=== PATIENT | female | born 1985 | race Caucasian/White ===

== ENCOUNTER → 2018-01-14 14:45 | Outpatient (CLI) | payer BC, SELFPAY ==
[2018-01-20 16:03] LABS: HPV Reflexed? NOT INDICATED
== END ==
PROVIDERS: Visit Provider Obstetrics & Gynecology
DX: Z12.4 Encounter for screening for malignant neoplasm of cervix (principal)
CPT/HCPCS: 88175; G0145

== ENCOUNTER → 2019-10-26 07:40 | Outpatient (CLI) | payer BC, SELFPAY ==
[2019-10-26 09:12] LABS: Follicle Stimulating Hormone 5.8 mIU/mL; Free T3 2.5 pg/mL (2.18-3.98); T4 Free Direct 1.13 ng/dL (0.76-1.46); Thyroid Stim Hormone (TSH) 1.17 uIU/mL (0.358-3.74)
[2019-10-26 14:55] LABS: Vitamin D,25 Hydroxy 29.2 ng/mL (29.95-100.01)
[2019-10-27 06:07] LABS: DHEA Sulfate 83.4 ug/dL (57.3-279.2)
[2019-10-27 12:09] LABS: Sex Hormone-binding Globulin 65.2 nmol/L (24.6-122.0)
== END ==
PROVIDERS: Family Provider Family Medicine; PCP Family Medicine; Referring Provider Obstetrics & Gynecology; Visit Provider Obstetrics & Gynecology
DX: N92.6 Irregular menstruation, unspecified (principal); E28.8 Other ovarian dysfunction
CPT/HCPCS: 36415; 82306; 82627; 82670; 83001; 84270; 84403; 84439; 84443; 84481; 82626

== ENCOUNTER → 2019-11-22 09:26 | Outpatient (CLI) | payer BC, SELFPAY ==
--- NOTE | 2019-11-22 09:33 | BI_ITS ---
MAMMOGRAPHY - BILATERAL DIAGNOSTIC REASON FOR EXAM: Female, 34 years old. BILAT DIAGNOSTIC- FM HX MAT GMA 74(LATE STAGE DIAGNOSIS - WITH IN 6 MO) - PT HAD RT BREAST 1 CM UIQ MEDIAL ASPECT LUMP 6 WKS AGO PRE MENSES THAT WENT AWAY 10 DAYS LATER-INCREASED TENDERNESS ON RT PRE -MENSTRUALLY FOR LAST 3 MTHS, PT ALSO CUT WAY BACK ON [place] IN LAST MTH PERTINENT HISTORY: As above. TECHNIQUE: Digital examination. Mediolateral oblique (MLO) and craniocaudad (CC) views of both breasts were obtained. CAD: COMPARISON: None. Baseline examination. FINDINGS: Breast Composition: The breasts are heterogeneously dense, which may obscure small masses. There are no dominant masses or suspicious calcifications. No other significant abnormalities are identified. BI/DIAG MAMM W/CAD, BILAT IMPRESSION: Negative diagnostic mammogram. Yearly followup recommended. ASSESSMENT CATEGORY: BIRADS Category 1: Negative. A letter regarding these results will be sent to the patient by the facility within 30 days. FOLLOW UP RECOMMENDATION: Ultrasound Recommended. (I) Approximately 10% of breast cancers are not detected by mammography. A normal mammogram should not delay biopsy of a clinically suspicious abnormality. Electronically Signed: Ryan Grider MD at 11:36 EST , Service support ,
--- NOTE | 2019-11-22 09:34 | US_ITS ---
STUDY: ULTRASOUND BREAST - RIGHT REASON FOR EXAM: Female, 34 years old. Previous right breast lump. TECHNIQUE: Axial and longitudinal images of the RIGHT breast were performed with a high resolution ultrasound transducer. # OF IMAGES: 70 COMPARISON: None. FINDINGS: RIGHT Breast: There is no sonographically evident focal/discrete mass or cyst at the region of patient demonstrated palpable abnormality. At the 9:00 position, 1 cm from nipple there is a 0.5 x 0.5 x 0.3 cm, ovoid anechoic focus. This finding wider than it is tall. There is a typical benign appearing right axillary lymph node measuring 1.1 cm in maximum dimension. US/Breast Limited Unilateral IMPRESSION: No sonographically evident focal/discrete mass or cyst at the region of patient demonstrated palpable abnormality. Right breast 9:00 position subcentimeter simple cyst. Typically benign appearing right axillary lymph node. ASSESSMENT CATEGORY: BIRADS Category 2: Benign. A letter regarding these results will be sent to the patient by the facility within 30 days. Electronically Signed: Ryan Grider MD at 11:40 EST , Service support ,
== END ==
PROVIDERS: Family Provider Family Medicine; PCP Family Medicine; Referring Provider Obstetrics & Gynecology; Visit Provider Obstetrics & Gynecology
DX: N63.11 Unspecified lump in the right breast, upper outer quadrant (principal)
CPT/HCPCS: 76642; 77062; 77066; G0279

== ENCOUNTER → 2020-11-07 17:49 | Outpatient (CLI) | payer BC, SELFPAY | PROVIDERS: PCP Family Medicine; Visit Provider Nurse Practitioner Family | DX: R09.81 Nasal congestion (principal) | CPT/HCPCS: 87635; U0003 ==

== ENCOUNTER → 2022-11-22 | Outpatient (CLI) | payer OTHER, SELFPAY ==
[2022-11-22 11:55] LABS: Free T3 2.8 pg/mL (2.18-3.98); T4 Free Direct 0.99 ng/dL (0.76-1.46); Thyroid Stim Hormone (TSH) 1.24 uIU/mL (0.358-3.74)
== END | disposition home or self-care (01) ==
LOC: LAB 10:38
PROVIDERS: PCP Family Medicine; Visit Provider Student in an Organized Health Care Education/Training Program
DX: F90.0 Attention-deficit hyperactivity disorder, predominantly inattentive type (principal); F32.81 Premenstrual dysphoric disorder
CPT/HCPCS: 36415; 84439; 84443; 84481

== ENCOUNTER → 2022-11-29 | Outpatient (CLI) | payer OTHER, SELFPAY ==
[2022-11-29 12:13] LABS: Absolute Lymphocyte Count 0.96 X10^3/uL (0.83-4.51); Absolute Neutrophil Count 1.8 X10^3/uL (2.0-7.7); Basophil# 0.03 X10^3/uL; Eosinophil# 0.04 X10^3/uL; Eosinophils% 1.3 % (0-5); Hematocrit 39.7 % (37-47); Hemoglobin 13.4 g/dL (12.0-15.0); Lymphocyte # 0.96 X10^3/ul (0.83-4.51); Lymphocyte % 30.8 % (19-41); Mean Corp Hgb Conc 33.8 g/dL (32-36); Mean Platelet Vol. 10.4 fl (6.2-12.0); Monocyte# 0.25 X10^3/uL; NRBC Flagged by Analyzer 0 % (0-5); Neutrophil # 1.84 X10^3/uL (2.7-7.7); Neutrophil % 58.9 % (47-70); Platelet Count 263 K/mm3 (150-450); RBC Distribution Width CV 12.1 % (11.6-14.6); RBC Distribution Width SD 39.3 fl (35.1-43.9); Red Blood Count 4.46 M/mm3 (4.2-5.4); White Blood Count 3.1 K/mm3 (4.4-11.0)
[2022-11-29 12:39] LABS: ALB/GLOB Ratio 1.1 RATIO (0.9-2.4); AST(SGOT) 19 U/L (15-37); Alanine Aminotransfer ALT/SGPT 21 U/L (13-56); Albumin, Serum 3.9 g/dL (3.2-5.0); Alkaline Phosphatase 48 U/L (45-117); Anion Gap 8 (5-15); BUN 14 mg/dL (7-18); BUN/Creat Ratio 15.5 RATIO (10-20); Calcium,Total 9.1 mg/dL (8.5-10.1); Chloride 104 mmol/L (98-107); Cholesterol 141 mg/dL (200); EST Glomerular Filtration Rate 74 mL/min (>60); Est Glom Filt Rate - Afr Amer 89 mL/min (>60); Globulin 3.4 g/dL (2.2-4.2); Glucose 87 mg/dL (74-106); High Density Lipoprotein 72 mg/dL; Potassium 4.2 mmol/L (3.5-5.1); Protein, Total 7.3 g/dL (6.4-8.2); Sodium Level 139 mmol/L (136-145); Triglycerides 101 mg/dL; Very Low Density Lipoprotein 20 mg/dL (5-40)
== END | disposition home or self-care (01) ==
LOC: MFPLAB 10:29
PROVIDERS: PCP Family Medicine; Visit Provider Nurse Practitioner Family
DX: R42 Dizziness and giddiness (principal); Z13.1 Encounter for screening for diabetes mellitus; Z13.220 Encounter for screening for lipoid disorders
CPT/HCPCS: 36415; 80053; 80061; 85025

== ENCOUNTER → 2023-02-14 | Outpatient (CLI) | payer OTHER, SELFPAY ==
[2023-02-14 12:58] LABS: Bacteria 0 SEEN /hpf (None Seen)
[2023-02-14 15:01] LABS: Color, Urine Yellow (Yellow); Glucose, Dipstick Normal (Normal); Ketone-Dipstick 5 mg/dl (Negative); Leukocyte Esterase-Dipstick 25 /ul (Negative); Nitrite-Dipstick Negative (Negative); Occult Blood-Urine 10 /ul (Negative); Protein-Dipstick 15 mg/dl (Negative); Urine Bilirubin Dipstick Negative (Negative); Urine Clarity Clear (Clear); Urine Urobilinogen Normal (Normal)
[2023-02-14 15:11] LABS: Red Blood Cells-Urine 0-5 SEEN /hpf (0-5); White Blood Cells 10-25 SEEN /hpf (0-5)
[2023-02-14 15:12] LABS: Mucous, Urine 4+ /hpf (<or=2+); Squamous Epithelial Cells - UA 0-5 SEEN /hpf (5-10)
[2023-02-14 15:14] LABS: Absolute Lymphocyte Count 1.36 X10^3/uL (0.83-4.51); Absolute Neutrophil Count 3.2 X10^3/uL (2.0-7.7); Basophil# 0.03 X10^3/uL; Basophil% 0.6 % (0-1); Eosinophil# 0.02 X10^3/uL; Eosinophils% 0.4 % (0-5); Hematocrit 39.4 % (37-47); Hemoglobin 12.9 g/dL (12.0-15.0); Lymphocyte # 1.36 X10^3/ul (0.83-4.51); Lymphocyte % 27.3 % (19-41); Mean Corp Hgb Conc 32.7 g/dL (32-36); Mean Corpuscular Hgb 29.5 pg (27.0-32.0); Mean Corpuscular Volume 90.2 fL (81-99); Mean Platelet Vol. 10.8 fl (6.2-12.0); Monocyte# 0.38 X10^3/uL; Monocyte% 7.6 % (0-10); NRBC Flagged by Analyzer 0 % (0-5); Neutrophil # 3.19 X10^3/uL (2.7-7.7); Neutrophil % 63.9 % (47-70); Platelet Count 236 K/mm3 (150-450); RBC Distribution Width CV 12.4 % (11.6-14.6); RBC Distribution Width SD 40.8 fl (35.1-43.9); Red Blood Count 4.37 M/mm3 (4.2-5.4)
[2023-02-14 16:05] LABS: ALB/GLOB Ratio 1.2 RATIO (0.9-2.4); AST(SGOT) 14 U/L (15-37); Alanine Aminotransfer ALT/SGPT 21 U/L (13-56); Alkaline Phosphatase 50 U/L (45-117); Anion Gap 6 (5-15); BUN 16 mg/dL (7-18); BUN/Creat Ratio 21.8 RATIO (10-20); Calcium,Total 8.8 mg/dL (8.5-10.1); Chloride 104 mmol/L (98-107); Creatinine, Serum 0.74 mg/dL (0.55-1.02); EST Glomerular Filtration Rate 94 mL/min (>60); Est Glom Filt Rate - Afr Amer 114 mL/min (>60); Ferritin 18 ng/mL (8-252); Globulin 3.3 g/dL (2.2-4.2); Glucose 94 mg/dL (74-106); Potassium 3.9 mmol/L (3.5-5.1); Protein, Total 7.3 g/dL (6.4-8.2); Sodium Level 137 mmol/L (136-145); Thyroid Stim Hormone (TSH) 0.84 uIU/mL (0.358-3.74)
== END | disposition home or self-care (01) ==
LOC: MTLAB 12:44
PROVIDERS: PCP Family Medicine; Referring Provider Family Medicine; Visit Provider Family Medicine
DX: E61.1 Iron deficiency (principal); R30.0 Dysuria; R55 Syncope and collapse
CPT/HCPCS: 36415; 80053; 81001; 82728; 84443; 85025; 87086

== ENCOUNTER → 2023-03-12 | Outpatient (CLI) | payer OTHER, SELFPAY ==
[2023-03-19 08:11] LABS: HPV APTIMA, High Risk Negative (Negative)
== END | disposition home or self-care (01) ==
LOC: LABSPEC 10:43
PROVIDERS: PCP Family Medicine; Visit Provider Registered Nurse
DX: Z12.4 Encounter for screening for malignant neoplasm of cervix (principal)
CPT/HCPCS: 87624; 88175; G0145

== ENCOUNTER → 2023-07-11 | Outpatient (CLI) | payer OTHER, SELFPAY ==
--- NOTE | 2023-07-11 11:06 | ECHOD_ITS ---
Reason For Study: SYNCOPE/NEAR SYNCOPE Procedure This was a 2D Doppler, Color Flow transthoracic echocardiogram. Exam performed in department. Left Ventricle Normal LV size. Left ventricular systolic function is normal. The estimated ejection fraction is 60 %. Normal diastololic function. No regional wall motion abnormalities noted. Right Ventricle Normal RV size. Normal systolic function. Atria The left and right atria are normal. Mitral Valve Normal mitral valve. Trivial mitral valve insufficiency. Tricuspid Valve Normal tricuspid valve. Trivial tricuspid valve insufficiency. Right ventricular systolic pressure estimated to be 20 mmHg. Aortic Valve Trisinus/trileaflet aortic valve. Pulmonic Valve Normal pulmonic valve. Mild (1+) pulmonic valve insufficiency. Great Vessels Normal aortic root. Pericardium/Pleural No pericardial effusion. MMode/2D Measurements & Calculations LVIDd: 4.5 cm IVSd: 0.70 cm Ao root diam: 3.0 cm LVIDs: 2.9 cm LVPWd: 0.69 cm RVDd: 2.8 cm FS: 34.0 % LAV(MOD-bp): 25.4 ml LVAd ap4: 22.7 cm2 LVAd ap2: 21.2 cm2 LAV(MOD-bp) Indexed: 16.2 ml/m2 LVLd ap4: 7.0 cm LVLd ap2: 7.8 cm LAV(MOD-sp2): 27.1 ml EDV(MOD-sp4): 61.8 ml EDV(MOD-sp2): 51.5 ml LAV(MOD-sp4): 21.0 ml EDV(sp4-el): 61.9 ml EDV(sp2-el): 49.1 ml LVAs ap4: 13.6 cm2 LVAs ap2: 11.6 cm2 LVLs ap4: 5.8 cm LVLs ap2: 5.5 cm ESV(MOD-sp4): 28.9 ml ESV(MOD-sp2): 21.7 ml ESV(sp4-el): 26.7 ml ESV(sp2-el): 20.8 ml EF(MOD-sp4): 53.2 % EF(MOD-sp2): 57.9 % EF(sp4-el): 56.9 % SV(MOD-sp4): 32.9 ml SV(MOD-sp2): 29.8 ml SV(sp4-el): 35.2 ml LA dimension(2D): 2.2 cm LA A4 area: 9.7 cm2 RA A4 area: 7.7 cm2 Time Measurements MV dec time: 0.16 sec Doppler Measurements & Calculations MV E max tigre: 85.0 cm/sec Lat Peak E' Tigre: 13.8 cm/sec Med Peak E' Tigre: 12.4 cm/sec MV A max tigre: 55.2 cm/sec E/E' lat: 6.1 E/E' med: 6.8 MV E/A: 1.5 MV V2 max: 88.0 cm/sec MV P1/2t max tigre: 88.8 cm/sec Ao V2 max: 104.4 cm/sec MV max P.1 mmHg MV P1/2t: 39.3 msec Ao max P.4 mmHg MV V2 mean: 58.7 cm/sec MV dec slope: 661.1 cm/sec2 Ao V2 mean: 75.4 cm/sec MV mean P.5 mmHg Ao mean P.4 mmHg MV V2 VTI: 16.9 cm MVA(P1/2t): 5.6 cm2 Ao V2 VTI: 19.4 cm AV (velocity ratio): 0.81 LV V1 max: 83.3 cm/sec PA V2 max: 90.3 cm/sec TR max tigre: 208.0 cm/sec LV V1 max P.8 mmHg PA V2 mean: 67.8 cm/sec TR max P.3 mmHg LV V1 mean P.6 mmHg LV V1 mean: 59.3 cm/sec LV V1 VTI: 15.7 cm ECHO/Echo Complete Interpretation Summary The estimated ejection fraction is 60 %. Trivial mitral valve insufficiency. Ordering Physician: Tiarra Sinha Referring Physician: Dami Giron Performed By: Vicenta Mccarthy, RDCS, RVT
== END | disposition home or self-care (01) ==
LOC: CVS 11:05
PROVIDERS: PCP Family Medicine; Referring Provider Internal Medicine Cardiovascular Disease; Visit Provider Internal Medicine Cardiovascular Disease
DX: R00.0 Tachycardia, unspecified (principal); R55 Syncope and collapse; R42 Dizziness and giddiness
CPT/HCPCS: 93225; 93226; 93306

== ENCOUNTER → 2024-03-11 | Outpatient (CLI) | payer OTHER, SELFPAY ==
[2024-03-19 12:09] LABS: Alternaria alternata <0.10 kU/L (Class 0); Aspergillus fumigatus <0.10 kU/L (Class 0); Bahia Grass <0.10 kU/L (Class 0); Bermuda Grass <0.10 kU/L (Class 0); Bluegrass, Kentucky <0.10 kU/L (Class 0); Cat Hair/Dander, Standard <0.10 kU/L (Class 0); Cladosporium herbarum <0.10 kU/L (Class 0); D farinae Mite <0.10 kU/L (Class 0); D pteronyssinus <0.10 kU/L (Class 0); Dog Epithelia <0.10 kU/L (Class 0); Elm, American White <0.10 kU/L (Class 0); Johnson Grass <0.10 kU/L (Class 0); Oak, White <0.10 kU/L (Class 0); Ragweed, Short/Common <0.10 kU/L (Class 0)
== END | disposition home or self-care (01) ==
LOC: MFPLAB 15:24
PROVIDERS: PCP Family Medicine; Visit Provider Family Medicine
DX: T78.40XA Allergy, unspecified, initial encounter (principal)
CPT/HCPCS: 36415; 86003

== ENCOUNTER → 2024-08-06 | Outpatient (CLI) | payer OTHER, SELFPAY ==
--- NOTE | 2024-08-06 08:59 | BI_ITS ---
MAMMOGRAPHY - BILATERAL SCREENING REASON FOR EXAM: Female, 39 years old. Routine annual screening examination. PERTINENT HISTORY: Grandmother with breast cancer. TECHNIQUE: Digital bilateral breast jono (3D mammographic acquisition) in the CC and MLO projections. 2-D mediolateral oblique (MLO) and craniocaudad (CC) views of both breasts were obtained. CAD: Full Field Digital Mammography with Computer Added Detection was performed. COMPARISON: Comparison is made with prior study dated November 22, 2019. FINDINGS: Breast Composition: The breasts are extremely dense, which lowers the sensitivity of mammography. There are no dominant masses or suspicious calcifications. No other significant abnormalities are identified. There has been no significant change since the prior study. BI/SCRN MAMM (CAD)W/JONO BILAT IMPRESSION: Stable bilateral screening mammogram. Yearly follow-up mammogram recommended. (A) ASSESSMENT CATEGORY: BIRADS Category 1: Negative. A letter regarding these results will be sent to the patient by the facility within 30 days. Approximately 10% of breast cancers are not detected by mammography. A normal mammogram should not delay biopsy of a clinically suspicious abnormality. [id number] Electronically Signed: Efraín Ackerman MD at 9:44 EDT ,
== END | disposition home or self-care (01) ==
LOC: OPBI 08:59
PROVIDERS: PCP Family Medicine; Referring Provider Advanced Practice Midwife; Visit Provider Advanced Practice Midwife
DX: Z12.31 Encounter for screening mammogram for malignant neoplasm of breast (principal)
CPT/HCPCS: 77063; 77067

== ENCOUNTER → 2024-12-23 | Outpatient (CLI) | payer OTHER, SELFPAY ==
[2024-12-23 18:17] LABS: PTHIN 58.9 pg/mL (18.4-80.1)
[2024-12-23 18:32] LABS: Vitamin D,25 Hydroxy 29.9 ng/mL
[2024-12-23 18:41] LABS: Absolute Lymphocyte Count 1.52 X10^3/uL (0.83-4.51); Absolute Neutrophil Count 4.3 X10^3/uL (2.0-7.7); Basophil# 0.06 X10^3/uL; Eosinophil# 0.05 X10^3/uL; Eosinophils% 0.8 % (0-5); Hematocrit 39.7 % (37-47); Hemoglobin 12.5 g/dL (12.0-15.0); Lymphocyte # 1.52 X10^3/ul (0.83-4.51); Lymphocyte % 24.2 % (19-41); Mean Corp Hgb Conc 31.5 g/dL (32-36); Mean Corpuscular Hgb 28.3 pg (27.0-32.0); Mean Platelet Vol. 10.4 fl (6.2-12.0); Monocyte# 0.34 X10^3/uL; Monocyte% 5.4 % (0-10); NRBC Flagged by Analyzer 0 % (0-5); Neutrophil # 4.31 X10^3/uL (2.7-7.7); Neutrophil % 68.4 % (47-70); Platelet Count 317 K/mm3 (150-450); RBC Distribution Width CV 12.9 % (11.6-14.6); RBC Distribution Width SD 42.7 fl (35.1-43.9); Red Blood Count 4.41 M/mm3 (4.2-5.4); White Blood Count 6.3 K/mm3 (4.4-11.0)
[2024-12-23 18:51] LABS: CRP < 2.90 mg/L (0.0-3.0); Rheumatoid Factor < 10.0 IU/mL (<15)
[2024-12-23 18:59] LABS: Erythrocyte Sedimentation Rate 5 mm/hr (0-30)
[2024-12-25 17:07] LABS: ANTINUCLEAR ANTIBODIES DIRECT Negative (Negative)
[2024-12-27 16:08] LABS: Lyme Scn Total Ab w/Rflx Negative (Negative); PROEL- A/G Ratio 1.1 (0.7-1.7); PROEL- Alpha-1 Globulin 0.3 g/dL (0.0-0.4); PROEL- Alpha-2 Globulin 0.7 g/dL (0.4-1.0); PROEL- Gamma Globulin 1.4 g/dL (0.4-1.8); PROEL- Globulin, Total 3.5 g/dL (2.2-3.9); PROEL- TOTAL PROTEIN 7.5 g/dL (6.0-8.5); PROEL-M-Spike Not Observed g/dL (Not Observed)
== END | disposition home or self-care (01) ==
LOC: MFPLAB 14:49
PROVIDERS: PCP Family Medicine; Visit Provider Family Medicine
DX: M06.4 Inflammatory polyarthropathy (principal)
CPT/HCPCS: 36415; 82306; 83970; 84165; 85025; 85652; 86038; 86140; 86431; 86618

== ENCOUNTER → 2025-08-26 | Outpatient (CLI) | payer OTHER, SELFPAY ==
[2025-08-26 13:06] LABS: Cholesterol 118 mg/dL (<=200); Follicle Stimulating Hormone 7.5 mIU/mL; Glucose 92 mg/dL (70-99); Low Density Lipoprotein Calc. 41 mg/dL; Triglycerides 83 mg/dL; Very Low Density Lipoprotein 17 mg/dL (5-40); Vitamin D,25 Hydroxy 42.0 ng/mL (30-100); cholesterol:hdl ratio screen 1.95
[2025-08-30 03:07] LABS: Anti-Mullerian Hormone,Serum 3.03 ng/mL (.)
== END | disposition home or self-care (01) ==
PROVIDERS: PCP Family Medicine; Referring Provider Obstetrics & Gynecology; Visit Provider Obstetrics & Gynecology
DX: N95.1 Menopausal and female climacteric states (principal); Z13.1 Encounter for screening for diabetes mellitus; Z13.220 Encounter for screening for lipoid disorders
CPT/HCPCS: 36415; 80061; 82306; 82670; 82947; 83001; 83002; 83516; 84443

== ENCOUNTER → 2025-09-16 | Outpatient (CLI) | payer OTHER, SELFPAY | END | disposition home or self-care (01) | LOC: OPBI 11:45 | PROVIDERS: PCP Family Medicine; Referring Provider Obstetrics & Gynecology; Visit Provider Obstetrics & Gynecology | DX: Z12.31 Encounter for screening mammogram for malignant neoplasm of breast (principal) | CPT/HCPCS: 77063; 77067 ==